=== PATIENT | female | born 1945 | race Caucasian/White ===

== ENCOUNTER → 2017-08-05 | Outpatient (CLI) | payer OTHER ==
--- NOTE | 2017-08-06 08:03 | MRI ---
MRI BRAIN WITHOUT CONTRAST CLINICAL HISTORY: 72-year-old female with headaches, syncope and vertigo. COMPARISON: None. TECHNIQUE: Multiplanar, multisequence MR images of the brain were obtained without contrast. FINDINGS: There is no evidence of diffusion restriction. The craniocervical junction is normal. Parti ally empty sella. Pituitary and optic nerve complex are otherwise normal. Normal signal characteristi cs and morphology are demonstrated within the cerebral cortex, subcortical white matter, corpus callo sum, deep hudson nuclei, brainstem and cerebellum. The major vascular flow voids, to include the dural venous sinuses, are intact. Age advanced cortical volume loss is present, with commensurate sulcal an d ventricular prominence. The basilar cisterns are normal. The orbits and globes are within normal limits. Trace mucosal thickening of the ethmoid labyrinth and mild mucosal thickening of the bilateral maxillary sinuses with the remaining paranasal sinuses, mas toid air cells and tympanic cavities clear. IMPRESSION: 1. No acute ischemic or hemorrhagic insult. 2. Mildly age advanced volume loss. 3. And pattern of mucosal thickening within the paranasal sinuses as described, correlate for sinusit is. Reported By:
== END ==
LOC: RAD 15:36
PROVIDERS: ATTEND Internal Medicine
DX: R51 Headache (principal); G40.89 Other seizures; R55 Syncope and collapse; H81.13 Benign paroxysmal vertigo, bilateral
CPT/HCPCS: 70551

== ENCOUNTER → 2017-10-17 | Outpatient (CLI) | payer OTHER ==
--- NOTE | 2017-10-18 08:47 | MRI ---
MRI OF THE LUMBAR SPINE WITHOUT IV CONTRAST CLINICAL INDICATION: Chronic back pain with recent fall. TECHNIQUE: Pre-contrast sagittal T1-, T2-, and T2-w fat-saturated images, and axial T1- and T2-w imag es of the lumbar spine. COMPARISON: 04/18/2015 FINDINGS: For purposes of this dictation, it is assumed that there are 5 [id number], lumbar-type vertebrae , and the most caudal fully segmented lumbar vertebra is labeled L5. Grade 1 retrolisthesis of L2 on L3. Vertebral bodies are normal in height. There is a normal marrow s ignal pattern. Multilevel degenerative disc disease worst at L2-L3 and L5-S1. The conus medullaris te rminates at a normal level and the nerve roots of the cauda equina appear normal. The included parasp inal soft tissues and retroperitoneal structures are grossly normal. Evaluation of the individual levels demonstrates: L1-2: Circumferential disc bulge with mild central stenosis without significant neural foraminal sten osis. Bilateral high facet signal. L2-3: Circumferential disc bulge, facet hypertrophy resulting in moderate to severe central stenosis and moderate bilateral neural foraminal stenosis. L3-4: Circumferential disc bulge, facet hypertrophy and ligamentum flavum redundancy resulting in mod erate to severe central stenosis and moderate bilateral neural foraminal stenosis. L4-5: Circumferential disc bulge and facet hypertrophy with mild central stenosis and moph-qi-qfaijwi e bilateral neural foraminal stenosis. L5-S1: Mild disc bulge without significant stenosis. Facet arthropathy bilaterally with moderate to s evere bilateral foraminal stenosis IMPRESSION: 1. Multilevel degenerative disc disease resulting in varying degrees of central neural foraminal sten osis as above. Findings are grossly similar prior examination. 2. 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 Reported By:
== END | disposition home or self-care (01) | DRG 552 ==
LOC: RAD 10:24
PROVIDERS: ATTEND Internal Medicine
DX: M51.16 Intervertebral disc disorders with radiculopathy, lumbar region (principal); M51.36 Other intervertebral disc degeneration, lumbar region; M48.061 Spinal stenosis, lumbar region without neurogenic claudication; M13.88 Other specified arthritis, other site
CPT/HCPCS: 72148

== ENCOUNTER 2023-06-27 14:53 | Observation (INO) ==
[2023-06-27] MEDS ORDERED: CONSULT PHARMACY - POTASSIUM & MAGNESIUM XX SCH ×2 (16:36→21:00)
[2023-06-27 17:09] LABS: BASOPHILS # (AUTO) 0.2 X10^3/uL (0.0-0.1); BASOPHILS % (AUTO) 1.8 % (0.2-1.0); EOSINOPHILS # (AUTO) 0.5 x10^3/uL (0.0-0.2); EOSINOPHILS % (AUTO) 5.2 % (0.9-2.9); HEMATOCRIT 41.7 % (36.0-47.0); HEMOGLOBIN 14.3 g/dL (12.0-16.0); LYMPHOCYTES # (AUTO) 2.6 X10^3/uL (1.3-2.9); LYMPHOCYTES % (AUTO) 28.5 % (21.0-51.0); MEAN CORPUSCULAR HEMOGLOBIN 32.1 pg (27.0-34.0); MEAN CORPUSCULAR HGB CONC 34.4 g/dL (33.0-35.0); MEAN CORPUSCULAR VOLUME 93.3 fL (80.0-100.0); MEAN PLATELET VOLUME 8.7 fL (7.4-11.0); MONOCYTES # (AUTO) 1.1 x10^3/uL (0.3-0.8); MONOCYTES % (AUTO) 11.9 % (0.0-13.0); NEUTROPHILS # (AUTO) 4.8 x10^3/uL (2.2-4.8); NEUTROPHILS % (AUTO) 52.6 % (42.0-75.0); PLATELET COUNT 274 X10^3/uL (150.0-450.0); RED BLOOD COUNT 4.47 X10^6/uL (3.5-5.4); WHITE BLOOD COUNT 9.2 X10^3/uL (3.6-10.0)
[2023-06-27] MEDS: ASPIRIN 81 MG CHEWTAB PO SCH (17:17)
[2023-06-27 17:25] LABS: ALANINE AMINOTRANSFERASE 35 Units/L (12-78); ALBUMIN 3.7 g/dL (3.4-5.0); ALKALINE PHOSPHATASE 81 Units/L (46-116); ASPARTATE AMINO TRANSFERASE 23 Units/L (15-37); BLOOD UREA NITROGEN 17 mg/dL (7-18); CALCIUM 9.1 mg/dL (8.5-10.1); CARBON DIOXIDE 32.8 mmol/L (21-32); CHLORIDE 101 mmol/L (98-107); CREATINE KINASE 28 Units/L (26-192); CREATININE 1.07 mg/dL (0.55-1.02); GLUCOSE 101 mg/dL (65-99); MAGNESIUM 1.9 mg/dL (2.0-2.9); POTASSIUM 4.3 mmol/L (3.5-5.1); SODIUM 139 mmol/L (136-145); TOTAL PROTEIN 6.8 g/dL (6.4-8.2); eGFR NON BLACK RACES 52 (>60)
--- NOTE | 2023-06-27 17:34 | EKG ---
Test Reason : WEAKNESS Blood Pressure : */* mmHG Vent. Rate : 67 BPM Atrial Rate : 67 BPM P-R Int : 192 ms QRS Dur : 70 ms QT Int : 418 ms P-R-T Axes : 79 19 60 degrees QTc Int : 441 ms Normal sinus rhythm Normal ECG When compared with ECG of 20-JUN-2023 23:14, No significant change was found Confirmed by Ernesto Maynard ([id number]) on 06/28/2023 12:50:20 PM Referred By: Confirmed By: Ernesto Maynard
[2023-06-27] MEDS: NS 1,000 ML IV 1,000 ML IV SCH (17:35)
[2023-06-27] MEDS: LIPITOR TAB 40 MG PO SCH (20:39)
[2023-06-27] MEDS: MAG-OX TAB PO SCH ×2 (22:21→23:10)
[2023-06-28 00:44] LABS: BILIRUBIN,URINE NEGATIVE (NEGATIVE); BLOOD/HEMOGLOBIN,URINE NEGATIVE (NEGATIVE); GLUCOSE, URINE NEGATIVE (NEGATIVE); KETONES,URINE NEGATIVE (NEGATIVE); LEUKOCYTE ESTERASE ,URINE NEGATIVE (NEGATIVE); NITRITES,URINE NEGATIVE (NEGATIVE); PROTEIN,URINE NEGATIVE (NEGATIVE); UROBILINOGEN,URINE NORMAL (NORMAL)
[2023-06-28 00:59] LABS: APPEARANCE,URINE CLEAR (CLEAR); COLOR,URINE STRAW (YELLOW)
[2023-06-28] MEDS: NS 1,000 ML IV 1,000 ML IV SCH ×2 (05:09→17:49)
[2023-06-28 05:41] LABS: BASOPHILS # (AUTO) 0.2 X10^3/uL (0.0-0.1); BASOPHILS % (AUTO) 2.3 % (0.2-1.0); EOSINOPHILS # (AUTO) 0.5 x10^3/uL (0.0-0.2); EOSINOPHILS % (AUTO) 6.5 % (0.9-2.9); HEMATOCRIT 38.8 % (36.0-47.0); HEMOGLOBIN 13.2 g/dL (12.0-16.0); LYMPHOCYTES # (AUTO) 2.2 X10^3/uL (1.3-2.9); LYMPHOCYTES % (AUTO) 30.5 % (21.0-51.0); MEAN CORPUSCULAR HEMOGLOBIN 31.8 pg (27.0-34.0); MEAN CORPUSCULAR VOLUME 93.5 fL (80.0-100.0); MEAN PLATELET VOLUME 8.8 fL (7.4-11.0); MONOCYTES # (AUTO) 0.9 x10^3/uL (0.3-0.8); MONOCYTES % (AUTO) 12.8 % (0.0-13.0); NEUTROPHILS # (AUTO) 3.4 x10^3/uL (2.2-4.8); NEUTROPHILS % (AUTO) 47.9 % (42.0-75.0); PLATELET COUNT 249 X10^3/uL (150.0-450.0); RED BLOOD COUNT 4.15 X10^6/uL (3.5-5.4); RED CELL DISTRIBUTION WIDTH 12.7 % (11.6-16.5); WHITE BLOOD COUNT 7.1 X10^3/uL (3.6-10.0)
[2023-06-28 05:55] LABS: ALANINE AMINOTRANSFERASE 30 Units/L (12-78); ALKALINE PHOSPHATASE 64 Units/L (46-116); ASPARTATE AMINO TRANSFERASE 19 Units/L (15-37); BLOOD UREA NITROGEN 19 mg/dL (7-18); CALCIUM 8.2 mg/dL (8.5-10.1); CARBON DIOXIDE 29.1 mmol/L (21-32); CHLORIDE 105 mmol/L (98-107); CREATININE 0.88 mg/dL (0.55-1.02); GLUCOSE 95 mg/dL (65-99); POTASSIUM 3.7 mmol/L (3.5-5.1); SODIUM 142 mmol/L (136-145); TOTAL PROTEIN 5.7 g/dL (6.4-8.2); eGFR NON BLACK RACES > 60 (>60)
[2023-06-28] MEDS: ASPIRIN 81 MG CHEWTAB PO SCH (08:23)
--- NOTE | 2023-06-28 11:07 | DR.UPDATE ---
H&P Update Prescription drug monitoring program results: PDMP reviewed and no concerns identified H&P Reviewed: Yes Any changes to H&P?: Yes Changes noted:: WAS TREATED IN THE HOSPITAL LAS WEEK FOR A POSSIBLE ALLERGIC REACTION. DURING THAT VISIT, HER COMPLAINTS WERE FATIGUE, SORE THROAT, DIZZINESS, NAUSEA, WEAKNESS, SHORTNESS OF BREATH, AND CHEST DISCOMFORT. SHE WAS TRETED WITH IV FLUIDS AND IV STEROIDS. SHE WAS DISCHARGED HOME ON 06/21 WITH RX FOR FAMOTIDINE AND MONTELUKAST. SHE PRESENTED TO THE OFFICE ON 06/27 FOR A ONE WEEK HOSPITAL FOLLOW-UP. AT HER FOLLOW-UP, SHE COMPLAINED OF PERSISTENT FATIGUE AND WEAKNESS. SHE REPORTED A LEFT SIDED HEADACHE. SHE REPORTED THAT PAIN STARTED AT HER HEAD AND RADIATES ALL THE WAY DOWN TO HER TOES. ADDITIONALLY, SHE COMPLAINED OF SHORTNESS OF BREATH. HER SPOUSE REPORTS THAT SHE SEEMS CONFUSED AT TIMES. SYMPTOMS HAVE BEEN WORSE FOR THE PAST 2-3 DAYS. SHE DENIES FEVER OR COUGH. DECISION WAS MADE TO READMIT PATIENT TO THE HOSPTIAL FOR FURTHER EVALUATION AND TREATMENT. DX: LEFT SIDED WEAKNESS, HEADACHE, AMS, SOB. HER PMH INCLUDES: HTN, HYPOTHYROIDISM, DEPRESSION, ALLERGIC RHINITIS, ANXIETY, BLADDER TACK, PARTIAL HYSTERECTOMY, CHRONIC LOW BACK PAIN. ON ARRIVAL TO THE HOSPITAL, HER VITALS WERE: 97.8-70-18-98%-179/78. LABS WERE OBTAINED. WBC 9.2, RBC 4.47, HGB 14.3, HCT 41.7, PLT COUNT 274, SODIUM 139, POTASSIUM 4.3, CHLORIDE 101, CARBON DIOXIDE 32.8, BUN 17, CREATININE 1.07, GLUCOSE 101, CALCIUM 9.1, MAGNESIUM 1.9, AST 23, ALT 35, ALK PHOS 81, CREATINE KINASE 28, TROPONIN 11.9, TOTAL PROTEIN 6.8, ALBUMIN 3.7. URINALYSIS WAS OBTAINED AND WAS UNREMARKABLE. A URINE CULTURE WAS SET UP. EKG WAS OBTAINED AND REVEALED: NORMAL SINUS RHYTHM WITH HR 67 BPM. SHE WAS STARTED ON NORMAL SALINE AT 80 ML/HR, ATORVASTATIN 40MG HS, ASPIRIN 81MG DAILY. HER HOME MEDICATIONS OF FAMOTIDINE, ESTRADIOL, DULOXETINE, MONTELUKAST, METOPROLOL, AND LEVOTHYROXINE WERE RESUMED. WE WILL OBTAIN A BRAIN MRI WITHOUT CONTRAST. OTHERWISE, WE WILL FOLLOW UP WITH AM LABS AND CONTINUE TO MONITOR. TIME SPENT ON CLINICAL ASSESSMENT, REVIEWING LABS AND IMAGING, DECISION MAKING, AND DOCUMENTATION GREATER THAN 75 MINUTES. Patient was examined?: Yes
[2023-06-28] MEDS: ESTRACE PO SCH (11:45)
[2023-06-28] MEDS: PEPCID TAB 20 MG PO SCH ×2 (11:45→20:30)
[2023-06-28] MEDS: CYMBALTA PO SCH (11:45)
[2023-06-28] MEDS: SYNTHROID 50 mcg TAB PO SCH (11:45)
[2023-06-28] MEDS: TOPROL XL PO SCH (11:45)
--- NOTE | 2023-06-28 13:39 | MRI ---
HISTORYpersistent left sided weakness, pt states swelling on left side of body, and dizzinessSTUDYBRAIN W/O CONCOMPARISONCT brain dated 06/20/2023TECHNIQUEMultiplanar multi-sequence MRI of the brain was obtained utilizing standard departmental protocol. Sagittal and axial T1 weighted images were obtained. Axial T2 and flair weighted images were performed as well. Axial diffusion weighted and ADC trace mapping was performed.FINDINGSThe ventricles are normal in size and symmetric. There is no evidence of an acute infarct, there are no focal areas of restricted diffusion. There is normal midline anatomy, no sellar masses. The cervicocranial junction is unremarkableNo nasopharyngeal masses. FLAIR images demonstrate mild periventricular white matter changes. There is no abnormal signal in the brainstem.The main arterial and venous flow voids are presentNo abnormal signal in the mastoid cells. There is mild mucosal thickening in the recess of the right maxillary sinus. No orbital masses. There is a near empty sella. There is symmetry of the cavernous sinus.IMPRESSIONNo acute intracranial abnormalities.Mild periventricular white matter changes likely microvascular ischemic disease.Electronically signed by: Kennedi Cho (Jun 28, 2023 13:37:34)
[2023-06-28] MEDS ORDERED: SINGULAIR TAB 10 MG ONE (18:59)
--- NOTE | 2023-06-28 19:10 | RAD ---
HISTORYSOBSTUDYCHEST, 1 VIEWCOMPARISONJuly 2022TECHNIQUEChest radiographic imaging, AP portable projection, 1 imageFINDINGSNo cardiomegaly.No focal airspace disease.No pleural effusion.No pneumothorax.No acute osseous abnormality.IMPRESSIONNo imaging findings of acute cardiopulmonary disease.Electronically signed by: Jose Miguel Weiner (Jun 28, 2023 19:10:30)
[2023-06-28] MEDS: LIPITOR TAB 40 MG PO SCH (20:30)
[2023-06-28] MEDS ORDERED: SINGULAIR TAB 10 MG PO SCH (21:00)
[2023-06-29] MEDS ORDERED: RESTORIL CAP 15 MG PO PRN (00:44)
[2023-06-29] MEDS ORDERED: RESTORIL CAP 15 MG PO ONE (00:49)
[2023-06-29] MEDS: NS 1,000 ML IV 1,000 ML IV SCH (04:04)
[2023-06-29 07:02] LABS: BASOPHILS # (AUTO) 0.1 X10^3/uL (0.0-0.1); EOSINOPHILS # (AUTO) 0.5 x10^3/uL (0.0-0.2); EOSINOPHILS % (AUTO) 7.1 % (0.9-2.9); HEMATOCRIT 38.2 % (36.0-47.0); HEMOGLOBIN 13.1 g/dL (12.0-16.0); LYMPHOCYTES # (AUTO) 2.3 X10^3/uL (1.3-2.9); LYMPHOCYTES % (AUTO) 31.2 % (21.0-51.0); MEAN CORPUSCULAR HGB CONC 34.2 g/dL (33.0-35.0); MEAN CORPUSCULAR VOLUME 93.7 fL (80.0-100.0); MEAN PLATELET VOLUME 8.6 fL (7.4-11.0); MONOCYTES # (AUTO) 0.9 x10^3/uL (0.3-0.8); MONOCYTES % (AUTO) 12.7 % (0.0-13.0); NEUTROPHILS # (AUTO) 3.4 x10^3/uL (2.2-4.8); PLATELET COUNT 243 X10^3/uL (150.0-450.0); RED BLOOD COUNT 4.08 X10^6/uL (3.5-5.4); RED CELL DISTRIBUTION WIDTH 12.9 % (11.6-16.5); WHITE BLOOD COUNT 7.2 X10^3/uL (3.6-10.0)
[2023-06-29 07:17] LABS: ALANINE AMINOTRANSFERASE 30 Units/L (12-78); ALBUMIN 3.1 g/dL (3.4-5.0); ALKALINE PHOSPHATASE 67 Units/L (46-116); ASPARTATE AMINO TRANSFERASE 23 Units/L (15-37); BLOOD UREA NITROGEN 11 mg/dL (7-18); CALCIUM 8.6 mg/dL (8.5-10.1); CARBON DIOXIDE 29.5 mmol/L (21-32); CHLORIDE 107 mmol/L (98-107); COR CA(FOR HYPOALB) 9.3 mg/dL (8.5-10.1); CREATININE 0.85 mg/dL (0.55-1.02); GLUCOSE 98 mg/dL (65-99); POTASSIUM 4.8 mmol/L (3.5-5.1); SODIUM 142 mmol/L (136-145); TOTAL PROTEIN 5.8 g/dL (6.4-8.2); eGFR NON BLACK RACES > 60 (>60)
[2023-06-29] MEDS: ESTRACE PO SCH (08:48)
[2023-06-29] MEDS: ASPIRIN 81 MG CHEWTAB PO SCH (08:49)
[2023-06-29] MEDS: CYMBALTA PO SCH (08:49)
[2023-06-29] MEDS: PEPCID TAB 20 MG PO SCH (08:49)
[2023-06-29] MEDS: SYNTHROID 50 mcg TAB PO SCH (08:49)
[2023-06-29] MEDS: TOPROL XL PO SCH (08:49)
[2023-06-29 11:08] VITALS: BP 144/77; PULSE 63; RESP 18; TEMP 98.8; O2SAT 97
== END 2023-06-29 11:15 | disposition home or self-care (01) ==
LOC: MED/SURG
PROVIDERS: ADMIT Internal Medicine; ATTEND Internal Medicine